=== PATIENT | female | born 1945 | race Caucasian/White ===

== ENCOUNTER 2019-12-24 07:21 | Outpatient (RCR) | payer MEDICARE, MEDICAID, SELFPAY ==
--- NOTE | 2019-12-03 10:38 | WPDWOUNDNOTE ---
Wound Care Note Date/Time: 12/03/19 10:38 History: 74 year old alert patient with spina bifida. She has a new open, level 3, non diabetic wound of the left groin. She had complained of right hip pain for over two months. The cause of that was not known. Pelvic x-rays done 10/03/2019 revealed osteoarthritis and chronic changes to her right hip consistent with a lifetime of spina bifida The right revealed changes consistent with osteoarthritis and also possible osteomyelitis. She was referred to Dr Velázquez to evaluate the right hip pain and he felt she would best be served by being evaluated at [facility]. She has not been there as of this date. he may refuse due to a prior experience there for another reason. Today she reports that about 2 months ago she rapidly developed rednes and swelling in the left medial groin This went on to rupture an drain pus spontaneously. She say a culture had been done at her NH. (We are attempting to obtain the result.) Wound history: She presents today for my evaluation of this wound that was first seen at [facility] a week or so ago. She has no fever, erythema, drainage or foul odor. Wound approximation: No Wound width: ~5.0 cm Wound length: ~ 6.0 cm Wound depth: ~ 2.0 cm Drainage: 0 Surrounding tissue appearance: 70% wound margin yellow slough. No cellulitis. Tunnelin Percentage granulation tissue: 30% Dressings: Begin Seth Ward for 2-[address] Huizar at wound center in 3 weeks . Obtain culture result from [facility] Request advice from Radiol. re: CT vs MRI.
--- NOTE | 2019-12-24 11:51 | WPDWOUNDNOTE ---
Wound Care Note Date/Time: 12/24/19 11:51 History: 74 year old alert female with spina bifida from [facility] in [place]. At wound center today for f/u of left groin non pressure ulcer that is approx. 6x 5 cm and extends to the deep fascia.. Treatment was started with Santyl a month ago and the wound is generally improved,there is no cellulitis or purulent drainage. Cause of the ulceration may relate to possible osteomyelitis of the left femur and hip noted on plain films of the hip and pelvis done in September. She is afebrile. I am not aware of recent CBC or inflammatory marker blood work. This patient does not have spinal or other skeletal metallic hardware. Dr Espinoza has suggested CT of pelvis with contrast. We also need to get a CBC and crp. She has also c/o right hip pain and was evaluated by Dr Velázquez from ortho who diagnosed osteroarthritis by x-ray of the right hip joint and thought she would best be served by referral to [facility]. She continues to have pain there but did not complain today. Wound history: Onset within the past 2 months. This is not a pressure ulcer. Dressings: Santil dressing today. Assessment and Plan Additional Plan Continue Santyl dressing indefinitely. Pt is not a good candidate for NPWT due to local moisture. Will order CT of pelvis with contrast to be done at [facility]. Will order CBC and C-Reactive protein at her [facility]. F/U based on results, otherwise one month.
--- NOTE | 2020-01-21 08:44 | PCWOUND ---
Wocn Note Patient cancelled for today due to fear of COVID 19.
== END 2020-02-27 23:59 | disposition home or self-care (01) ==
LOC: ANHWOC 07:21
PROVIDERS: PCP Family Medicine; Visit Provider Plastic Surgery
DX: L98.499 Non-pressure chronic ulcer of skin of other sites with unspecified severity (principal)
CPT/HCPCS: 99212; G0463

== ENCOUNTER 2020-01-27 14:11 | Emergency (ER) | payer MEDICARE, MEDICAID, SELFPAY ==
[2020-01-27] VITALS (7 sets, daily range): BP systolic 104–136; BP diastolic 58–83; PULSE 88–95; RESP 16–20; TEMP 37; O2SAT 100
--- NOTE | 2020-01-27 15:53 | ED.WOUNDLAC ---
HPI - Wound/Laceration General Chief Complaint: Wound/Laceration Stated Complaint: wound Time Seen by Provider: 01/27/20 15:14 Source: patient and RN notes reviewed Mode of arrival: EMS Limitations: no limitations History of Present Illness HPI narrative: Pt is a 74 y/o female who presents to the ED via EMS with c/o chronic wound on her lt inner thigh. She notes that she has had a wound on her lt inner thigh since September of 2019. Pt states that she has been following with Dr. Carlson for her wound, and notes that she has been receiving wound care at her intermediate. She states that her intermediate sent her to the ED this afternoon for an unknown reason. Pt denies any fever, chills, nausea, vomiting, or pain around the wound. Onset (ago): month(s) (3) Location: other (lt thigh) Associated symptoms: other (erythema on lt inner thigh) Related Data Home Medications Medication Instructions Recorded Confirmed Protein Liquid 30 ml PO BID 11/29/19 12/30/19 albuterol sulfate 2.5 mg INHALATION Q2H PRN 11/29/19 12/30/19 ascorbic acid (vitamin C) 1 g PO DAILY 11/29/19 12/30/19 aspirin [Aspirin Low Dose] 81 mg PO DAILY 11/29/19 12/30/19 cholecalciferol (vitamin D3) 1,000 unit PO DAILY 11/29/19 12/30/19 collagenase clostridium histo. 1 applic TOPICAL DAILY 11/29/19 12/30/19 [Santyl] dorzolamide 1 drp OPHTHALMIC (EYE) BID 11/29/19 12/30/19 fluorometholone 1 drp OPHTHALMIC (EYE) BID 11/29/19 12/30/19 ibuprofen 200 mg PO Q6H PRN 11/29/19 12/30/19 metronidazole [Flagyl] 500 mg DAILY 11/29/19 12/30/19 multivitamin,[id number] 1 tablet PO DAILY 11/29/19 12/30/19 [Complete Multivitamin] vitamin A 8,000 unit PO DAILY 11/29/19 12/30/19 vitamin B comp and C no.3 [B 1 cap PO DAILY 11/29/19 12/30/19 Complex Plus Vitamin C] vitamin E 400 unit PO DAILY 11/29/19 12/30/19 Allergies Allergy/AdvReac Type Severity Reaction Status Date / Time ciprofloxacin Allergy Severe SIEZURE Verified 09/27/19 08:32 ticarcillin Allergy Severe Seizure Verified 11/29/19 13:44 clavulanic acid Allergy Unknown unknown Verified 12/30/19 13:40 POTASSIUM CLAVULANATE Allergy Severe SIEZURE Uncoded 09/27/19 08:32 Review of Systems Review of Systems: All systems reviewed & are unremarkable except as noted in HPI and below Constitutional: Constitutional: Denies chills and Denies fever(s) Gastrointestinal: Gastrointestinal: Denies nausea and Denies vomiting Integumentary/Breasts: Skin/Breast: Reports change in pigmentation (erythema on lt inner thigh), Denies skin pain (pain around wound on lt inner thigh) and Reports wounds (chronic wound on lt inner thigh) PMFSH Past Medical History Medical History Arthritis Cataracts, bilateral Dizziness Glaucoma (increased eye pressure) Hemorrhoids Hyperlipidemia Malaise Paraplegia Primary osteoarthritis of right hip Rhabdomyolysis Sacral spina bifida without hydrocephalus Scoliosis Unspecified asthma UTI (urinary tract infection) Vitamin D deficiency Surgical History Surgical History Hx of cataract surgery Hx of skin graft Hx of spinal surgery Hx of tonsillectomy Social History Social History Smoking status: Never smoker Alcohol intake: current Gender identity (if verbalized by the patient): Female Exam Narrative: Exam Narrative: General appearance: Well-developed, well-nourished Skin: Normal color. Left groin chronic wound packed with gauze which is clean showing no discoloration, no surrounding erythema, tenderness or discharge. Head: Normocephalic, nontraumatic Eyes: Clear conjunctiva ENT: Oropharynx normal, ears normal, nose normal Neck: Supple, nontender Chest and respiratory: Airway patent, no respiratory distress, no accessory muscle use Heart: Regular rate/rhythm Abdomen: Soft, nontender, no organomegaly, quiet bowel sounds
== END 2020-01-27 20:16 ==
PROVIDERS: Emergency Provider Emergency Medicine; PCP Family Medicine
DX: L98.8 Other specified disorders of the skin and subcutaneous tissue (principal); M19.90 Unspecified osteoarthritis, unspecified site; H40.9 Unspecified glaucoma; E78.5 Hyperlipidemia, unspecified; M16.11 Unilateral primary osteoarthritis, right hip; Q05.9 Spina bifida, unspecified; G82.20 Paraplegia, unspecified; J45.909 Unspecified asthma, uncomplicated; Z87.440 Personal history of urinary (tract) infections; E55.9 Vitamin D deficiency, unspecified; Z98.42 Cataract extraction status, left eye; Z98.41 Cataract extraction status, right eye
CPT/HCPCS: 99281

== ENCOUNTER 2020-01-30 13:05 | Outpatient (CLI) | payer MEDICARE, MEDICAID, SELFPAY ==
--- NOTE | ~2020-01-30 | CT_ITS ---
EXAMINATION: CT pelvis w con DATE: 01/30/2020 14:11 INDICATION: Osteomyelitis of left hip. TECHNIQUE: Computed tomography (CT) of the pelvis was performed with 100 mL Omnipaque 350 intravenous contrast. Automated exposure control and iterative reconstruction technique were employed. The dose- length product was 913.58 mGy-cm. COMPARISON: Pelvis and hip radiographs 10/03/2019, CT pelvis 11/03/2014 FINDINGS: There is a 3.1 cm cyst in right kidney. There is moderate left hydronephrosis and hydrouret er. There are 8 mm and 5 mm stones in left ureter where it crosses the iliac vessels. The bladder is distended with trabeculation of the wall, consistent with neurogenic bladder. There are no dilated lo ops of bowel. There is total occlusion of left superficial femoral artery with reconstitution. There is severe fatty atrophy of much of the musculature of the pelvis and thighs. There is thoracolumbar d extroscoliosis and hyperlordosis. There is severe right hip arthritis with loose bodies. There is sub cutaneous soft tissue attenuation posterior to right greater trochanter, consistent with pressure nec rosis. There is chronic erosion of the underlying bone from a previous episode of osteomyelitis. The bone is now well corticated. Left hip joint demonstrates severe arthritis including extensive erosion s and loose bodies. There is a large left hip joint effusion that extends superiorly into the iliopso as muscle with foci of gas, consistent with septic arthritis. There is subcutaneous soft tissue poste rior to greater trochanter of proximal left femur, consistent with a pressure ulcer. In the left ingu inal region, there are likely changes of debridement with superficial soft tissue attenuation, consis tent with inflammation/infection. There is mild left inguinal lymphadenopathy, likely reactive. There is subcutaneous soft tissue attenuation around the anus, consistent with inflammation. IMPRESSION: 1. Left hip septic arthritis with large hip joint effusion with loose bodies. 2. Decubitus ulcers posterior to the proximal femora. Likely changes of debridement and inflammation/ infection in left inguinal region. 3. 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 4. Mild left inguinal lymphadenopathy, likely reactive. Reviewed, dictated and finalized at location A. IMPRESSION: 1. Left hip septic arthritis with large hip joint effusion with loose bodies. 2. Decubitus ulcers posterior to the proximal femora. Likely changes of debride ment and inflammation/infection in left inguinal region. 3. Moderate left hydronephrosis and hydroureter with 8 mm and 5 mm stones in le ft ureter where it crosses the iliac vessels. 4. Mild left inguinal lymphadenopathy, likely reactive.
[2020-01-30 13:54] LABS: Estimated Glomerular Filt Rate > 60
== END 2020-01-30 13:06 | disposition home or self-care (01) ==
PROVIDERS: PCP Family Medicine; Visit Provider Plastic Surgery
DX: M86.152 Other acute osteomyelitis, left femur (principal); M16.12 Unilateral primary osteoarthritis, left hip; L89.229 Pressure ulcer of left hip, unspecified stage
CPT/HCPCS: 36415; 72193; Q9967

== ENCOUNTER 2020-06-18 09:59 | Outpatient (CLI) | payer MEDICARE, MEDICAID, SELFPAY ==
--- NOTE | ~2020-06-18 | CT_ITS ---
EXAMINATION: CT pelvis wo con DATE: 06/18/2020 10:41 INDICATION: Chronic osteomyelitis of the left femur. TECHNIQUE: High resolution computed tomography (CT) of the pelvis was performed without intravenous c ontrast. Additional sagittal and coronal reconstructions were performed. Automated exposure control a nd iterative reconstruction technique were employed. The dose-length product was 639.66 mGy-cm. COMPARISON: 01/30/2020 FINDINGS: No significant change in a 3.2 cm cyst at the upper pole of the right kidney. Moderate left hydrouret eronephrosis with a couple residual at least partially obstructing stones in the distal left ureter. Bladder is distended with trabeculation of the bladder wall consistent with chronic neurogenic bladde r.. There is mild colonic diverticulosis with a sigmoid predominance. There is no adjacent inflammat ory change to suggest diverticulitis. Appendix and visualized small bowels are unremarkable. Uterus i s unremarkable. No free fluid in the pelvis. Couple likely reactive left inguinal lymph nodes. No pat hologically enlarged pelvic lymphadenopathy. Severe thoracolumbar dextrorotoscoliosis and hyperlordos is. Again seen is thickened granulation tissue along the margins of a deep ulcer anterior to the left hip along the inguinal crease with some gas and fluid extending to contact the bone in the region of the subtrochanteric femur. There has been progression of osteolysis with complete destruction of the lef t femoral head and neck is a thin proximal migration of the femur. There is additional osteolysis wit h cortical scalloping, intramedullary sclerosis and progressive appearing periosteal reaction consist ent with ongoing chronic osteomyelitis. The periosteal reaction intramedullary sclerosis extends appr oximately 5 cm distal to the inferior margin of the intertrochanteric femur. No change in the osteoly sis involving the left acetabulum. There is also relatively stable appearance of the associated intra medullary sclerosis and surrounding periosteal reaction involving the left acetabulum and extending i nto the supra-acetabular left ilium on both the anterior and posterior columns and distally into the lateral aspect of the left superior pubic ramus also consistent chronic osteomyelitis. There is moderate right hip osteoarthritis with unchanged pattern of heterotopic ossification in the soft tissues surrounding the joint space and chronic corticated periosteal reaction along the anterio r iliac spine with thickened surrounding soft tissue likely sequela of chronic inflammation, potentia lly due to prior septic arthritis and osteomyelitis. No new bone loss for acute appearing erosions to suggest ongoing osteomyelitis at the right hip. There are linear tract of soft tissue scarring exten ding from the right hip to the skin surface. Prominent fatty atrophy of the musculature of the pelvis and proximal thighs. IMPRESSION: 1. Deep ulceration/defect of prior debridement anterior to the left hip with ongoing chronic osteomye litis at the left hip with significant progression of osseous destruction of the left femoral head an d neck with osteomyelitis extending into the subtrochanteric femur. 2. Moderate right hip osteoarthritis with prominent heterotopic ossification surrounding soft tissues and chronic periosteal reaction along the anterior iliac spine which may represent sequela of prior septic arthritis/osteomyelitis. No acute appearing bone changes to suggest ongoing acute osteomyeliti s at the right hip. 3. Persistent moderate left hydroureteronephrosis with a pair of at least partially obstructing stone s in the distal left ureter. 4. Unchanged likely reactive mild left inguinal lymphadenopathy. Reviewed, dictated and finalized at location A. [facility]
== END 2020-06-18 10:00 | disposition home or self-care (01) ==
LOC: ANHIMG 10:14
PROVIDERS: PCP Family Medicine; Visit Provider Plastic Surgery
DX: M86.452 Chronic osteomyelitis with draining sinus, left femur (principal); M16.11 Unilateral primary osteoarthritis, right hip; N13.30 Unspecified hydronephrosis; R59.0 Localized enlarged lymph nodes
CPT/HCPCS: 72192

== ENCOUNTER 2023-01-11 10:35 | Emergency (ER) | payer MEDICARE, MEDICAID, SELFPAY ==
[2023-01-11] VITALS (29 sets, daily range): BP systolic 108–146; BP diastolic 56–109; PULSE 78–100; RESP 16–33; TEMP 36.9; O2SAT 97–100
--- NOTE | ~2023-01-11 | CT_ITS ---
EXAMINATION: CT pelvis w con DATE: 01/11/2023 15:18 INDICATION: Decubitus ulcers. TECHNIQUE: Computed tomography (CT) of the pelvis was performed with 100 mL Omnipaque 350 intravenous contrast. Automated exposure control and iterative reconstruction technique were employed. The dose- length product was 789.47 mGy-cm. COMPARISON: Pelvis CT 06/18/2020 FINDINGS: There is a 3.5 cm cyst in right kidney. There are no dilated loops of bowel. There is diffu se bladder wall thickening, likely neurogenic bladder. There is dextroscoliosis of thoracolumbar. Rig ht hip demonstrates chronic periosteal reaction of the ilium, severe joint space narrowing, and osteo phytes. There are multiple loose bodies. There is an ulcer posterior to the proximal right femur with chronic fat stranding and soft tissue attenuation extending from the skin to the joint. Left hip dem onstrates chronic erosions of the acetabulum and proximal femur with chronic periosteal reaction and loose bodies. There is an ulcer posterior to proximal left femur with extension of soft tissue attenu ation and fat stranding from the skin to the joint. In the left groin, there is an ulcer with chronic soft tissue attenuation extending from the skin to the proximal femur. There is chronic soft tissue attenuation posterior to the rectum extending from the skin to the rectum. There is severe fatty atro phy of the musculature in the pelvis and thighs. IMPRESSION: 1. Decubitus ulcers with inflammation/scarring extending to both hip joints with chronic changes of t he bones from chronic osteomyelitis. Reviewed, dictated and finalized at location A. IMPRESSION: 1. Decubitus ulcers with inflammation/scarring extending to both hip joints wit h chronic changes of the bones from chronic osteomyelitis.
[2023-01-11 12:07] LABS: Basophils Absolute Auto 0.1 K/mm3 (0.0-0.1); Basophils Percent Auto 0.8 % (0.2-1.2); Eosinophils Absolute Auto 0.3 K/mm3 (0-0.3); Eosinophils Percent Auto 3.9 % (0-4.4); Hematocrit 41.3 % (37.0-47.0); Hemoglobin 13.3 g/dL (12.0-15.0); Immature Granulocyte Absolute 0.02 K/mm3 (0.00-0.031); Immature Granulocyte Percent A 0.3 % (0-0.5); Lymphocytes Absolute Auto 1.41 K/mm3 (0.9-3.2); Lymphocytes Percent Auto 17.9 % (18.3-44.2); Mean Corpuscular HGB Conc 32.2 g/dl (32-36); Mean Corpuscular Hemoglobin 29.1 pg (26-34); Mean Corpuscular Volume 90.4 fl (80-100); Mean Platelet Volume 9.3 fl (7.4-10.4); Monocytes Absolute Auto 0.7 K/mm3 (0.1-0.6); Monocytes Percent Auto 8.5 % (2.6-8.5); Neutrophils Absolute Auto 5.4 K/mm3 (1.3-6.7); Neutrophils Percent Auto 68.6 % (45.5-73.1); Platelet Count Result 286 k/mm3 (150-375); Red Blood Count 4.57 M/mm3 (4.2-5.4); White Blood Count 7.9 K/mm3 (4.5-10.0)
[2023-01-11 12:20] LABS: INR 1.2; Prothrombin Time 14.8 Seconds (11.1-14.7)
[2023-01-11 12:21] LABS: Partial Thromboplastin Time 40.5 SECONDS (22.3-36.8)
[2023-01-11 12:27] LABS: Alanine Aminotransferase 22 U/L (6-35); Albumin Level 4.3 g/dL (3.5-5.1); Alkaline Phosphatase 76 U/L (38-126); Anion Gap 4 mmol/L (8-16); Aspartate Amino Transferase 36 U/L (14-36); Bilirubin,Total 0.5 mg/dL (0.2-1.3); Blood Urea Nitrogen 18 mg/dL (7-17); CRP 3.7 mg/dL (<1.0); Calcium 9.5 mg/dL (8.4-10.2); Carbon Dioxide 30 mmol/L (22-30); Chloride 103 mmol/L (98-107); Estimated Glomerular Filt Rate > 60; Glucose 105 mg/dL (65-110); Lipase 115 U/L (23-300); Potassium 4.1 mmol/L (3.4-5.0); Sodium 137 mmol/L (137-145)
--- NOTE | 2023-01-11 12:27 | PC.NURSE ---
pt refusing straight cath for urine specimen tried bedpan and unable to urinate, will try again
--- NOTE | 2023-01-11 12:28 | PC.NURSE ---
Pt. attempted to urinate with no success. Pt. refusing catheter at this time.
[2023-01-11 12:36] LABS: Erythrocyte Sedimentation Rate 50 mm/hr (0-20)
--- NOTE | 2023-01-11 14:36 | ED.GENADULT ---
HPI - General Adult General Chief complaint: Wound/Laceration Stated complaint: confusion and coccyx wound Time Seen by Provider: 01/11/23 10:36 History of Present Illness HPI narrative: Patient is a 77-year-old female who presents to the ER with [facility]. Patient alert and oriented x3 here. She reports that she has a ulcer to her right hip that is been ongoing for several months. [facility]. Denies fevers or chills or sweats. No chest pain or chest pressure. Patient immobile due to spina bifida. Patient has no pain because she has no feeling below her waist. Related Data Home Medications Medication Instructions Recorded Confirmed Protein Liquid 30 ml PO BID 11/29/19 12/30/19 albuterol sulfate 2.5 mg/3 mL 2.5 mg inhalation Q2H PRN 11/29/19 12/30/19 (0.083 %) solution for nebulization Shortness Of Breath ascorbic acid (vitamin C) 1,000 mg 1 g PO DAILY 11/29/19 12/30/19 tablet aspirin 81 mg tablet,delayed 81 mg PO DAILY 11/29/19 12/30/19 release (Marya Low Dose Aspirin) cholecalciferol (vitamin D3) 25 1,000 unit PO DAILY 11/29/19 12/30/19 mcg/drop (1,000 unit/drop) oral drops collagenase clostridium histo. 250 1 applic topical DAILY 11/29/19 12/30/19 unit/gram topical ointment (Santyl) dorzolamide 2 % eye drops 1 drp ophthalmic (eye) BID 11/29/19 12/30/19 fluorometholone 0.1 % eye 1 drp ophthalmic (eye) BID 11/29/19 12/30/19 drops,suspension ibuprofen 200 mg tablet 200 mg PO Q6H PRN Pain (Scale 11/29/19 12/30/19 Score 1-3) metronidazole 500 mg tablet 500 mg DAILY 11/29/19 12/30/19 (Flagyl) multivitamin,[id number] 1 tablet PO DAILY 11/29/19 12/30/19 (Complete Multivitamin tablet) vitamin A 2,400 mcg capsule 8,000 unit PO DAILY 11/29/19 12/30/19 vitamin B comp and C no.3 15 mg-10 1 cap PO DAILY 11/29/19 12/30/19 mg-50 mg-5 mg-300 mg capsule (B Complex Plus Vitamin C) vitamin E 268 mg (400 unit) capsule 400 unit PO DAILY 11/29/19 12/30/19 Allergies Allergy/AdvReac Type Severity Reaction Status Date / Time ciprofloxacin Allergy Severe SIEZURE Verified 01/11/23 10:50 ticarcillin Allergy Severe Seizure Verified 01/11/23 10:50 clavulanic acid Allergy Unknown unknown Verified 01/11/23 10:50 POTASSIUM CLAVULANATE Allergy Severe SIEZURE Uncoded 01/11/23 10:50 Review of Systems Review of Systems: All systems reviewed & are unremarkable except as noted in HPI and below Constitutional: Constitutional: Denies chills, Denies fatigue and Denies fever(s) ENT: Denies nasal congestion and Denies sore throat Cardiovascular: Cardiovascular: Denies chest pain, Denies radiating jaw, neck or arm pain and Denies slow heart rate Respiratory: Respiratory: Denies cough and Denies dyspnea Gastrointestinal: Gastrointestinal: Denies abdominal pain, Denies nausea and Denies vomiting Integumentary/Breasts: Skin/Breast: Denies pruritus, Denies erythema, Denies rash and Reports skin ulcer PMFSH Past Medical History Medical History (Updated 01/11/23 @ 16:39 by Wood German MD) Arthritis Cataracts, bilateral Dizziness Glaucoma (increased eye pressure) Hemorrhoids Hyperlipidemia Malaise Paraplegia Primary osteoarthritis of right hip Rhabdomyolysis Sacral spina bifida without hydrocephalus Scoliosis Unspecified asthma UTI (urinary tract infection) Vitamin D deficiency Surgical History Surgical History Hx of cataract surgery Hx of skin graft Hx of spinal surgery Hx of tonsillectomy Family History Family History Father Carcinoma of colon Mother Family history of malignant neoplasm of brain Social History Social History Smoking status: Never smoker Alcohol intake: current Gender identity (if verbalized by the patient): Female Exam [facility]ra
[2023-01-11 15:44] LABS: Appearance Urine Cloudy (Clear); Bacteria Urine 4+ /hpf; Bilirubin Urine Negative (Negative); Blood Urine 3+ (Negative); Color Urine Dark Yellow (Yellow); Glucose Urine UA Negative (Negative); Ketones Urine Negative (Negative); Leukocyte Esterase Ur 3+ LEU/UL (Negative); Nitrate Urine Positive (Negative); Non Pathogenic Casts 0-2; Protein Urine Negative (Negative); RBC Urine 21-50 /hpf (0-2); Specific Grav Ur 1.032 (1.001-1.035); Squamous Epithelial Cell Urine Moderate /hpf (Few); WBC Urine >100 /hpf
[2023-01-11 15:52] LABS: Add Urine Microscopic? YES
== END 2023-01-11 18:50 ==
PROVIDERS: Emergency Provider Emergency Medicine; PCP Family Medicine
DX: L89.219 Pressure ulcer of right hip, unspecified stage (principal); N39.0 Urinary tract infection, site not specified; Q05.9 Spina bifida, unspecified; E78.5 Hyperlipidemia, unspecified; J45.909 Unspecified asthma, uncomplicated
CPT/HCPCS: 36415; 72193; 80053; 81001; 83605; 83690; 85025; 85610; 85652; 85730; 86140; 87077; 87086; 87186; 96365; 99284; J0696; Q9967